=== PATIENT | female | born 1960 | race Caucasian/White ===

== ENCOUNTER 2017-11-14 01:23 | Inpatient (IN) | payer BC, OTHER ==
[2017-11-14] MEDS ORDERED: ALBUTEROL SO4 2.5/IPRATROPIUM 0.5 INH SOL 3 ML VIAL.NEB. NEB ONE ×2 (02:37→02:50)
--- NOTE | 2017-11-14 02:37 | PDOC ---
Attending Attestation - Resident Resident Name: AnthonyTamara - ED Attending Attestation I have performed the following: I have examined & evaluated the patient, The case was reviewed & discussed with the resident, I agree w/resident's findings & plan - HPI HPI: 11/14/17 05:58 Pt comes with SOB and fever and cough and total body pain. She last took antipyretics yesterday and she is burning up in the ER. - Physicial Exam PE: 11/14/17 05:58 Agree with resident exam - Medical Decision Making 11/14/17 06:02 Pt is feeling better after treatment in the ER; she wants to go home, however her pulsox at rest on room air is 93%. We will need to admit her to observation to ensure that her pulsox and breathing comes up.. 11/14/17 06:33 Patient Name: VANESSA GUTHRIE THIS IS A PRELIMINARY REPORT FROM [facility] DATE OF SERVICE: 2017-11-14 05:04:52 IMAGES: 1 EXAM: CHEST - PA HISTORY: Shortness of breath and fever COMPARISON: None. FINDINGS: The cardiomediastinal silhouette is normal. There is thickening of the right minor fissure versus mild subsegmental atelectasis. No definite effusion. The lungs are otherwise clear. IMPRESSION: No definite findings for pneumonia. 11/14/17 07:22 11/15/17 00:29 Decision was made to admit the patient for observation
[2017-11-14] MEDS ORDERED: MAGNESIUM SULF 50% (8.12 MEQ/2 ML-1 GM VIAL) IVPB ONE (02:38)
[2017-11-14] MEDS ORDERED: ACETAMINOPHEN 1000 MG/100 ML VIAL (NON FORMULARY) IVPB ONE (02:39)
[2017-11-14] MEDS ORDERED: methylPREDNISolone NA SUCC 125 MG/2 ML VIAL IVPUSH ONE (02:39)
--- NOTE | 2017-11-14 02:42 | PDOC ---
History of Present Illness <Janice Hendrix - Last Filed: 11/14/17 06:33> - History of Present Illness Initial Comments: 11/14/17 02:40 Patient is a 57 y.o. female with a PMH of asthma who presents with 5 day h/o subjective fever, non-productive cough as well as onset of dypsnea at rest today today prompting her visit to the ED. Patient endorses associated non- bloody diarrhea today. Patient denies any chest pain, abdominal pain, nausea/ vomiting, dysuria/hematuria as well recent travel, sick contacts. <Tamara Cruz - Last Filed: 11/14/17 07:05> - General Stated Complaint: ASTHMA Time Seen by Provider: 11/14/17 02:32 Past History <Janice Hendrix - Last Filed: 11/14/17 06:33> <Tamara Cruz - Last Filed: 11/14/17 07:05> - Past Medical History Allergies/Adverse Reactions: Allergies Allergy/AdvReac Type Severity Reaction Status Date / Time No Known Allergies Allergy Verified 11/14/17 02:39 Home Medications: Ambulatory Orders NK [No Known Home Medication] 11/14/17 Review of Systems - Review of Systems Constitutional: Yes: Fever. No: Chills HEENTM: No: Recent change in vision Respiratory: Yes: Shortness of Breath. No: Stridor, Wheezing, Hemoptysis Cardiac (ROS): No: Chest Pain, Lightheadedness, Palpitations, Syncope ABD/GI: Yes: Diarrhea. No: Constipated, Nausea, Vomiting : No: Burning, Dysuria <Tamara Cruz - Last Filed: 11/14/17 07:05> *Physical Exam - Vital Signs Last Vital Signs Temp Pulse Resp BP Pulse Ox 99.8 F H 130 H 24 156/90 95 11/14/17 04:26 11/14/17 01:30 11/14/17 01:30 11/14/17 01:30 11/14/17 02:45 <Janice Hendrix - Last Filed: 11/14/17 06:33> - Physical Exam General Appearance: Yes: Nourished, Appropriately Dressed Neck: positive: Trachea midline, Supple Respiratory/Chest: positive: Lungs Clear Cardiovascular: positive: S1, S2 Gastrointestinal/Abdominal: positive: Normal Bowel Sounds, Soft Musculoskeletal: positive: Normal Inspection, CVA Tenderness Extremity: positive: Normal Capillary Refill, Normal Inspection Integumentary: positive: Normal Color, Dry, Warm Neurologic: positive: Fully Oriented, Alert <Anthony,Tamara - Last Filed: 11/14/17 07:05> ED Treatment Course - LABORATORY CBC & Chemistry Diagram: 11/14/17 02:54 11/14/17 02:54 - ADDITIONAL ORDERS Additional order review: Laboratory Results 11/14/17 02:54 Sodium 134 L Potassium 4.0 Chloride 96 L Carbon Dioxide 28 Anion Gap 10 BUN 10 Creatinine 0.8 Creat Clearance w eGFR > 60 Random Glucose 158 H Calcium 9.1 Total Bilirubin 0.8 AST 22 ALT 28 Alkaline Phosphatase 107 Total Protein 8.2 Albumin 3.9 11/14/17 03:00 Influenza Types A,B Antigen (STEVE) - Final Nasopharyngeal Swab - Final 11/14/17 02:54 RBC 4.91 MCV 94.0 MCHC 33.8 RDW 13.5 MPV 7.8 Neutrophils % 78.5 Lymphocytes % 12.3 Monocytes % 8.8 Eosinophils % 0.1 Basophils % 0.3 - Medications Given in the ED: ED Medications Discontinued Medications Generic Name Dose Route Start Last Admin Trade Name Freq PRN Reason Stop Dose Admin Acetaminophen 1,000 mg 11/14/17 02:39 11/14/17 03:09 Ofirmev Injection - IVPB 11/14/17 02:40 1,000 mg ONCE ONE Administration Albuterol/Ipratropium 2 amp 11/14/17 02:37 11/14/17 03:09 Duoneb - NEB 11/14/17 02:38 2 amp ONCE ONE Administration Piperacillin/Tazobactam/Dextrose 2.25 gm in 50 mls @ 100 mls/hr 11/14/17 02: 44 11/14/17 04:26 Zosyn 2.25gm Ivpb (Premix) IVPB 11/14/17 03:13 100 mls/hr ONCE ONE Administration Protocol Ibuprofen 800 mg 11/14/17 02:44 11/14/17 03:11 Caldolor Injection - IVPB 11/14/17 02:45 800 mg ONCE ONE Administration Magnesium Sulfate 1 gm 11/14/17 02:38 11/14/17 03:09 Magnesium Sulfate IVPB 11/14/17 02:39 1 gm ONCE ONE Administration Methylprednisolone Sodium Succinate 125 mg 11/14/17 02:39 11/14/17 03:09 Solu-Medrol - IVPUSH 11/14/17 02:40 125 mg ONCE ONE Administration Sodium Chloride 1,000 ml 11/14/17 02:43 11/14/17 03:11 Normal Saline - IV 11/14/17 02:44 1,000 ml ONCE ONE Administration <Janice Hendrix - Last Filed: 11/14/17 06:33> - LABORATORY CBC & Chemistry Diagram: 11/14/17 02:54 11/14/17 02:54 - RADIOLOGY Radiology Studies Ordered: Category Date Time Status CHEST - PA [RAD] Stat Radiology 11/14/17 02:37 Ordered <Tamara Cruz - Last Filed: 11/14/17 07:05> Medical Decision Making - Medical Decision Making 11/14/17 03:58 57 y.o. female with a PMH of Asthma presents to our ED c/o dyspnea as well as viral URI symptoms. At presentation patient febrile + hypoxic. Will give Duo Nebs, Motrin/Tylenol as well as Steroids and Magnesium for presumed asthma exacerbation. Influenza swab, CXR pending. Reasess 11/14/17 06:46 Influenza negative. EKG shows no deviations, prolonged QT, no ST segment elevations/depression, poor R wave progression V1-V6. CXR shows no infiltrate/ consolidation however patient continues to breath 93% on RA. Will admit for observation and further treatment. <Tamara Cruz - Last Filed: 11/14/17 07:05> *DC/Admit/Observation/Transfer - Discharge Dispostion Admit: No <Janice Hendrix - Last Filed: 11/14/17 06:33> <Tamara Cruz - Last Filed: 11/14/17 07:05> Diagnosis at time of Disposition: Viral illness - Discharge Dispostion Disposition: HOME Condition at time of disposition: Improved - Patient Instructions Printed Discharge Instructions: DI for Viral Upper Respiratory Infection -- Adult Additional Instructions: Return to the Emergency Department for any new/worsening/concerning symptoms.
[2017-11-14] MEDS ORDERED: SODIUM CHLORIDE 0.9% 1000 ML INFUS.BAG IV ONE (02:43)
[2017-11-14] MEDS ORDERED: PIPERACILLIN/TAZOB 2.25 GM 2.25 GM/50 ML BAG IVPB ONE (02:44)
[2017-11-14] MEDS ORDERED: IBUPROFEN 800 MG/8 ML IJ IVPB ONE ×2 (02:44→02:50)
[2017-11-14] MEDS ORDERED: methylPREDNISolone NA SUCC 125 MG/2 ML VIAL ONE (02:50)
[2017-11-14] MEDS ORDERED: ACETAMINOPHEN INJECTION 100 ML IVPB ONE (02:50)
[2017-11-14] MEDS ORDERED: MAGNESIUM SULF 50% (8.12 MEQ/2 ML-1 GM VIAL) ONE (02:50)
[2017-11-14] MEDS ORDERED: PIPERACILLIN/TAZOB 3.375 GM 3.375 GM/50 ML BAG IVPB ONE (02:50)
[2017-11-14] MEDS ORDERED: PIPERACILLIN/TAZOBACTAM 2.25 GM VIAL IVPB ONE (02:51)
[2017-11-14 03:05] LABS: BASO % 0.3 % (0-2.0); EOS % 0.1 % (0-4.5); HEMATOCRIT 46.1 % (32.4-45.2); HEMOGLOBIN 15.6 GM/dL (10.7-15.3); LYMPH % 12.3 % (8-40); MCH 31.8 pg (25.7-33.7); MCHC 33.8 g/dl (32.0-36.0); MEAN PLT VOLUME 7.8 fl (7.5-11.1); MONO % 8.8 % (3.8-10.2); NEUT % 78.5 % (42.8-82.8); PLATELET COUNT 305 K/MM3 (134-434); RBC 4.91 M/mm3 (3.60-5.2); RDW 13.5 % (11.6-15.6)
[2017-11-14 03:30] LABS: ALBUMIN 3.9 g/dl (3.4-5.0); ALK PHOS 107 U/L (45-117); ANION GAP 10 (8-16); BILIRUBIN,TOTAL 0.8 mg/dL (0.2-1.0); BLOOD UREA NITROGEN 10 mg/dL (7-18); CALCIUM 9.1 mg/dL (8.5-10.1); CHLORIDE 96 mmol/L (98-107); CO2 28 mmol/L (21-32); CREATININE 0.8 mg/dL (0.55-1.02); GLUCOSE,RANDOM 158 mg/dL (74-106); SGOT/AST 22 U/L (15-37); SGPT/ALT 28 U/L (12-78); SODIUM 134 mmol/L (136-145); TOT PROT 8.2 g/dl (6.4-8.2)
[2017-11-14 05:12] VITALS: BMI 37.8
[2017-11-14] MEDS ORDERED: ACETAMINOPHEN 325 MG TABLET (FP) PO PRN (08:35)
[2017-11-14] MEDS ORDERED: ALBUTEROL SO4 0.083% IH SOL 2.5 MG/3 ML VIAL.NEB. NEB PRN (08:35)
[2017-11-14] MEDS ORDERED: SODIUM CHLORIDE 1,000 ML IV SCH (08:45)
[2017-11-14] MEDS ORDERED: CEFTRIAXONE 1 GM in DEXTROSE 5%-WATER - 50 ML IVPB ONE (08:48)
--- NOTE | 2017-11-14 08:56 | HP ---
<Manjit Restrepo - Last Filed: 11/14/17 09:27> CHIEF COMPLAINT: shortness of breath. PCP: Yesika Baldwin HISTORY OF PRESENT ILLNESS: 57 year old norwegian-speaking female with a past medical history of diabetes and asthma presents to the ED with a 5 day hx of shortness of breath. Patient states that she has been feeling ill since Wednesday and believed it was her asthma. She states she has had a cough productive of white sputum during this time. Patient states that she felt febrile earlier in the week with occasional body aches. She states that she takes albuterol at home, which did not help her. She decided to come to the hospital due to progression of her shortness of breath. Currently, patient is afrebrile and only complains of mild headache. She states that her shortness of breath has improved since she arrived at the hospital. Denies sick contacts. She states the has mild mid-sternal chest pain only when she coughs. Patient denies smoking, drinking, or illicit drug use. No allergies. Patient states that her pharmacy is at [address] [place] [address] but cannot remember the name. ER course was notable for: (1) Fever (2) Tachycardia (3) Leukocytosis (4) Pulmonary changes on CXR Recent Travel: none PAST MEDICAL HISTORY: asthma, diabetes PAST SURGICAL HISTORY: unknown Social History: Smoking: never Alcohol: never Drugs: never Family History: Allergies No Known Allergies Allergy (Verified 11/14/17 02:39) HOME MEDICATIONS: Home Medications Medication Instructions Recorded NK [No Known Home Medication] 11/14/17 REVIEW OF SYSTEMS CONSTITUTIONAL: Absent: fever, chills, diaphoresis, generalized weakness, malaise, loss of appetite, weight change HEENT: Absent: rhinorrhea, nasal congestion, throat pain, throat swelling, difficulty swallowing, mouth swelling, ear pain, eye pain, visual changes CARDIOVASCULAR: Absent: chest pain, syncope, palpitations, irregular heart rate, lightheadedness , peripheral edema RESPIRATORY: cough Absent: , shortness of breath, dyspnea with exertion, orthopnea, wheezing, stridor, hemoptysis GASTROINTESTINAL: Absent: abdominal pain, abdominal distension, nausea, vomiting, diarrhea, constipation, melena, hematochezia GENITOURINARY: Absent: dysuria, frequency, urgency, hesitancy, hematuria, flank pain, genital pain MUSCULOSKELETAL: Absent: myalgia, arthralgia, joint swelling, back pain, neck pain SKIN: Absent: rash, itching, pallor HEMATOLOGIC/IMMUNOLOGIC: Absent: easy bleeding, easy bruising, lymphadenopathy, frequent infections ENDOCRINE: Absent: unexplained weight gain, unexplained weight loss, heat intolerance, cold intolerance NEUROLOGIC: Absent: headache, focal weakness or paresthesias, dizziness, unsteady gait, seizure, mental status changes, bladder or bowel incontinence PSYCHIATRIC: Absent: anxiety, depression, suicidal or homicidal ideation, hallucinations. PHYSICAL EXAMINATION Vital Signs - 24 hr 11/14/17 11/14/17 11/14/17 01:30 02:45 04:26 Temperature 102.6 F H 99.8 F H Pulse Rate 130 H Pulse Rate [ Right Apical] Respiratory 24 Rate Blood Pressure 156/90 Blood Pressure [Right Arm] O2 Sat by Pulse 91 L 95 Oximetry (%) 11/14/17 07:46 Temperature 97.5 F L Pulse Rate Pulse Rate [ 85 Right Apical] Respiratory 16 Rate Blood Pressure Blood Pressure 126/75 [Right Arm] O2 Sat by Pulse 97 Oximetry (%) GENERAL: Awake, alert, and fully oriented, in no acute distress. HEAD: Normal with no signs of trauma. EYES: Pupils equal, round and reactive to light, extraocular movements intact, sclera anicteric, conjunctiva clear. No lid lag. LUNGS: Breath sounds equal, clear to auscultation bilaterally. No wheezes, and no crackles. No accessory muscle use. HEART: Regular rate and rhythm, normal S1 and S2 without murmur, rub or gallop. ABDOMEN: Obese, Soft, nontender, not distended, normoactive bowel sounds, no guarding, no rebound, no masses. No hepatomegaly or splenomegaly. MUSCULOSKELETAL: Normal range of motion at all joints. No bony deformities or tenderness. No CVA tenderness. UPPER EXTREMITIES: 2+ pulses, warm, well-perfused. No cyanosis. No clubbing. No peripheral edema. LOWER EXTREMITIES: 2+ pulses, warm, well-perfused. No calf tenderness. No peripheral edema. NEUROLOGICAL: Cranial nerves II-XII intact. Normal speech. Normal gait. PSYCHIATRIC: Cooperative. Good eye contact. Appropriate mood and affect. SKIN: Warm, dry, normal turgor, no rashes or lesions noted, normal capillary refill. Laboratory Results - last 24 hr 11/14/17 11/14/17 02:54 02:54 WBC 11.0 H RBC 4.91 Hgb 15.6 H Hct 46.1 H MCV 94.0 MCH 31.8 MCHC 33.8 RDW 13.5 Plt Count 305 MPV 7.8 Neutrophils % 78.5 Lymphocytes % 12.3 Monocytes % 8.8 Eosinophils % 0.1 Basophils % 0.3 Sodium 134 L Potassium 4.0 Chloride 96 L Carbon Dioxide 28 Anion Gap 10 BUN 10 Creatinine 0.8 Creat Clearance w eGFR > 60 Random Glucose 158 H Calcium 9.1 Total Bilirubin 0.8 AST 22 ALT 28 Alkaline Phosphatase 107 Total Protein 8.2 Albumin 3.9 ASSESSMENT/PLAN: 57 year old female with a history of asthma and diabetes is admitted to the hospital for respiratory distress likely secondary to pneumonia vs influenza vs asthma exacerbation. #Sepsis 2/2 pneumonia vs influenza: improved -rapid influenza negative, still would start 75mg Tamiflu BID -reported QT prolongation - give ceftriaxone 2gm and holding azithromycin due to QT prolongation (QTc - 598) -repeat CXR in AM -Fluid hydration with NS @ 100cc/hr -O2 2L NC -albuterol nebulizer PRN #Hyponatremia: likely 2/2 to sepsis -LR @ 100cc/hr #Diabetes: medications unknown at this time- pharmacy unknown -BGMs -ISS #FEN LR @ 100 CC/hr Replete lytes in AM Diabetic diet #Prophylaxis Lovenox 30 subQ QD #Disposition -Admit to med-surg Visit type - Emergency Visit Emergency Visit: Yes Care time: The patient presented to the Emergency Department on the above date and was hospitalized for further evaluation of their emergent condition. - New Patient This patient is new to me today: Yes Date on this admission: 11/14/17 - Critical Care Critical Care patient: No <Cherri Lane - Last Filed: 11/14/17 13:53> Patient is been seen and examined with the resident. Agree with the plan. # Flue symptoms will start the patient Tamiflu 75mg po bid, even though her flue swab is negative since sensitivity is 50%. # Acute Pneumonia with asthma exacerbation will start her on Rocephin will hold off on Zithromax since her QTc is 580's. avoid qt prolongation agents. # QT pronlongation will continue to monitor her # Asthma exacerbation will continue with Albutrol prn # Acute mild hyponatremia will continue with IVF # Hx of DM on sliding scale with coverage. DVT Px: Lovenox
[2017-11-14] MEDS ORDERED: ACETAMINOPHEN 325 MG TABLET (FP) ONE (09:23)
[2017-11-14] MEDS ORDERED: CEFTRIAXONE 1 GM/50 ML BAG ONE (09:24)
[2017-11-14] MEDS: OSELTAMIVIR PHOSPHATE 75 MG CAPSULE PO SCH ×2 (09:33→21:21)
[2017-11-14] MEDS: LACTATED RINGERS SOLUTION 1,000 ML/1,000 ML INFUS.BAG IV SCH ×2 (09:33→15:41)
[2017-11-14] MEDS: ENOXAPARIN NA (PORCINE) 30 MG/0.3 ML DISP.SYRIN SQ SCH (09:33)
[2017-11-14 10:18] LABS: URINE APPEARANCE CLEAR; URINE BILIRUBIN NEGATIVE (NEGATIVE); URINE BLOOD 2+ (NEGATIVE); URINE COLOR STRAW; URINE GLUCOSE (UA) 3+ (NEGATIVE); URINE KETONE 1+ (NEGATIVE); URINE LEUK ESTERASE NEGATIVE (NEGATIVE); URINE NITRITE NEGATIVE (NEGATIVE); URINE PROTEIN NEGATIVE (NEGATIVE); URINE UROBILINOGEN NEGATIVE mg/dL (0.2-1.0)
[2017-11-14 10:23] LABS: EPI CELLS RARE /HPF (FEW); URINE MUCUS RARE
[2017-11-14] MEDS: INSULIN (NOVOLOG) ASPART 100 UNITS/ML 10ML VIAL SQ SCH ×3 (11:44→21:21)
[2017-11-14] MEDS ORDERED: INSULIN REGULAR HUMAN 100 UNITS/ML *VIAL ONE (11:50)
--- NOTE | 2017-11-14 12:51 | EKG ---
Test Reason : Blood Pressure : / mmHG Vent. Rate : 096 BPM Atrial Rate : 096 BPM P-R Int : 178 ms QRS Dur : 080 ms QT Int : 378 ms P-R-T Axes : 055 -10 029 degrees QTc Int : 477 ms NORMAL SINUS RHYTHM NORMAL ECG WHEN COMPARED WITH ECG OF 14-NOV-2017 03:42, NOTE CHANGE IN R-WAVE PROGRESSION Confirmed by GIOVANNY TAPIA, KATHY ([id number]) on 11/14/2017 12:50:44 PM Referred By: Confirmed By:KATHY BALTAZAR MD
--- NOTE | 2017-11-14 12:52 | EKG ---
Test Reason : Blood Pressure : / mmHG Vent. Rate : 123 BPM Atrial Rate : 123 BPM P-R Int : 148 ms QRS Dur : 076 ms QT Int : 418 ms P-R-T Axes : 051 -11 034 degrees QTc Int : 598 ms SINUS TACHYCARDIA POOR R WAVE PROGRESSION ABNORMAL ECG WHEN COMPARED WITH ECG OF 22-JUL-2011 13:27, NONSPECIFIC T WAVE ABNORMALITY NOW EVIDENT IN ANTERIOR LEADS NOTE PROBABLE ERROR IN LEAD V4, RECOMMEND REPEAT TRACING Confirmed by KATHY BALTAZAR MD ([id number]) on 11/14/2017 12:52:06 PM Referred By: Confirmed By:KATHY BALTAZAR MD
[2017-11-14] MEDS: BUDESONIDE/FORMETEROL FUMARATE 160/4.5 mcg INHALER IH SCH ×2 (16:53→21:22)
[2017-11-14] MEDS ORDERED: PT OWN MED DRAWER 7, Y5N ONE (16:57)
[2017-11-14] MEDS ORDERED: AZITHROMYCIN IVPB 500 MG in DEXTROSE 5%-WATER - 250 ML IVPB ONE (18:39)
[2017-11-14] MEDS: MONTELUKAST NA 10 MG TABLET PO SCH (21:20)
[2017-11-15] MEDS: LACTATED RINGERS SOLUTION 1,000 ML/1,000 ML INFUS.BAG IV SCH (02:47)
[2017-11-15] MEDS: INSULIN (NOVOLOG) ASPART 100 UNITS/ML 10ML VIAL SQ SCH ×4 (06:35→21:55)
[2017-11-15 08:18] LABS: HEMATOCRIT 43.5 % (32.4-45.2); HEMOGLOBIN 14.3 GM/dL (10.7-15.3); MCHC 32.7 g/dl (32.0-36.0); MEAN CELL VOLUME 94.8 fl (80-96); MEAN PLT VOLUME 7.6 fl (7.5-11.1); PLATELET COUNT 284 K/MM3 (134-434); RBC 4.59 M/mm3 (3.60-5.2); RDW 13.8 % (11.6-15.6); WHITE BLOOD COUNT 9.3 K/mm3 (4.0-10.0)
[2017-11-15 08:41] LABS: ANION GAP 9 (8-16); BLOOD UREA NITROGEN 13 mg/dL (7-18); CALCIUM 8.7 mg/dL (8.5-10.1); CHLORIDE 103 mmol/L (98-107); CO2 28 mmol/L (21-32); CREATININE 0.6 mg/dL (0.55-1.02); GLUCOSE,RANDOM 130 mg/dL (74-106); MAGNESIUM 2.2 mg/dL (1.8-2.4); PHOSPHOROUS 3.8 mg/dL (2.5-4.9); POTASSIUM 3.9 mmol/L (3.5-5.1); SODIUM 140 mmol/L (136-145)
[2017-11-15] MEDS ORDERED: PT OWN MED DRAWER 7, Y5N ONE ×2 (09:13→21:39)
[2017-11-15] MEDS: BUDESONIDE/FORMETEROL FUMARATE 160/4.5 mcg INHALER IH SCH ×2 (09:16→21:49)
[2017-11-15] MEDS: OSELTAMIVIR PHOSPHATE 75 MG CAPSULE PO SCH ×2 (09:16→21:49)
[2017-11-15] MEDS: ENOXAPARIN NA (PORCINE) 30 MG/0.3 ML DISP.SYRIN SQ SCH (09:17)
[2017-11-15] MEDS ORDERED: INSULIN (NOVOLOG) ASPART 100 UNITS/ML 10ML VIAL ONE (11:29)
--- NOTE | 2017-11-15 12:36 | PN ---
<Manjit Restrepo - Last Filed: 11/15/17 12:39> Physical Exam: SUBJECTIVE: Patient seen and examined at bedside. She states that her breathing has improved since yesterday. Denies chest pain, SOB, nausea, vomiting, diarrhea. OBJECTIVE: Vital Signs Period Temp Pulse Resp BP Sys/Ram Pulse Ox Last 24 Hr 97.7 F-98.9 F 79-98 16-20 113-131/56-79 96-97 GENERAL: Awake, alert, and fully oriented, in no acute distress. HEAD: Normal with no signs of trauma. EYES: Pupils equal, round and reactive to light, extraocular movements intact, sclera anicteric, conjunctiva clear. No lid lag. LUNGS: Breath sounds equal, clear to auscultation bilaterally. No wheezes, and no crackles. No accessory muscle use. HEART: Regular rate and rhythm, normal S1 and S2 without murmur, rub or gallop. ABDOMEN: Obese, Soft, nontender, not distended, normoactive bowel sounds, no guarding, no rebound, no masses. No hepatomegaly or splenomegaly. MUSCULOSKELETAL: Normal range of motion at all joints. No bony deformities or tenderness. No CVA tenderness. SKIN: Warm, dry, normal turgor, no rashes or lesions noted, normal capillary refill. Laboratory Results - last 24 hr 11/14/17 11/14/17 11/15/17 16:40 21:18 06:34 WBC RBC Hgb Hct MCV MCH MCHC RDW Plt Count MPV Sodium Potassium Chloride Carbon Dioxide Anion Gap BUN Creatinine POC Glucometer 234 246 140 Random Glucose Calcium Phosphorus Magnesium 11/15/17 11/15/17 11/15/17 07:15 07:15 11:36 WBC 9.3 RBC 4.59 Hgb 14.3 Hct 43.5 MCV 94.8 MCH 31.0 MCHC 32.7 RDW 13.8 Plt Count 284 MPV 7.6 Sodium 140 Potassium 3.9 Chloride 103 Carbon Dioxide 28 Anion Gap 9 BUN 13 Creatinine 0.6 POC Glucometer 124 Random Glucose 130 H Calcium 8.7 Phosphorus 3.8 Magnesium 2.2 Active Medications Generic Name Dose Route Start Last Admin Trade Name Freq PRN Reason Stop Dose Admin Acetaminophen 650 mg 11/14/17 08:35 11/14/17 09:34 Tylenol - PO 650 mg Q4H PRN Administration PAIN Albuterol Sulfate 1 amp 11/14/17 08:35 Ventolin 0.083% Nebulizer Soln - NEB Q4H PRN SHORT OF BREATH/WHEEZING Budesonide/Formoterol Fumarate 2 puff 11/14/17 14:00 11/15/17 09:16 Symbicort 160/4.5mcg - IH 2 puff BID ROSA Administration Enoxaparin Sodium 30 mg 11/14/17 10:00 11/15/17 09:17 Lovenox - SQ 30 mg DAILY ROSA Administration Lactated Ringer's 1,000 ml in 1,000 mls @ 100 mls/hr 11/14/17 09:15 11/15/17 02:47 Lactated Ringers Solution IV 100 mls/hr ASDIR ROSA Administration Insulin Aspart 0 units 11/14/17 11:00 11/15/17 11:37 Novolog Vial SQ Not Given ACHS ROSA Protocol Montelukast Sodium 10 mg 11/14/17 22:00 11/14/17 21:20 Singulair - PO 10 mg HS ROSA Administration Oseltamivir Phosphate 75 mg 11/14/17 10:00 11/15/17 09:16 Tamiflu - PO 11/19/17 09:59 75 mg BID ROSA Administration ASSESSMENT/PLAN: 57 year old female with a history of asthma and diabetes is admitted to the hospital for respiratory distress likely secondary to pneumonia vs influenza vs asthma exacerbation. #Sepsis 2/2 pneumonia vs influenza: improved -rapid influenza negative, still would start 75mg Tamiflu BID -repeat CXR in AM shows clearing of possible infiltrates -O2 2L NC -albuterol nebulizer PRN -continue singulair -reassess condition in AM #Hyponatremia: likely 2/2 to sepsis, resolved -no need for fluids #Diabetes: medications unknown at this time- pharmacy unknown -BGMs -ISS #FEN No standing fluids Replete lytes in AM Diabetic diet #Prophylaxis Lovenox 30 subQ QD #Disposition -Admit to med-surg Visit type - Emergency Visit Emergency Visit: No - New Patient This patient is new to me today: No - Critical Care Critical Care patient: No <Cherri Lane - Last Filed: 11/15/17 19:18> Physical Exam: Patient seen and examined with the resident , agree with the plan. Vital Signs Temperature 98.9 F 11/15/17 15:02 Pulse Rate 90 11/15/17 15:02 Respiratory Rate 18 11/15/17 15:02 Blood Pressure 129/90 11/15/17 15:02 O2 Sat by Pulse Oximetry (%) 99 11/15/17 09:00 CBCD WBC 9.3 K/mm3 (4.0-10.0) 11/15/17 07:15 RBC 4.59 M/mm3 (3.60-5.2) 11/15/17 07:15 Hgb 14.3 GM/dL (10.7-15.3) 11/15/17 07:15 Hct 43.5 % (32.4-45.2) 11/15/17 07:15 MCV 94.8 fl (80-96) 11/15/17 07:15 MCHC 32.7 g/dl (32.0-36.0) 11/15/17 07:15 RDW 13.8 % (11.6-15.6) 11/15/17 07:15 Plt Count 284 K/MM3 (134-434) 11/15/17 07:15 MPV 7.6 fl (7.5-11.1) 11/15/17 07:15 CMP Sodium 140 mmol/L (136-145) 11/15/17 07:15 Potassium 3.9 mmol/L (3.5-5.1) 11/15/17 07:15 Chloride 103 mmol/L (98-107) 11/15/17 07:15 Carbon Dioxide 28 mmol/L (21-32) 11/15/17 07:15 Anion Gap 9 (8-16) 11/15/17 07:15 BUN 13 mg/dL (7-18) 11/15/17 07:15 Creatinine 0.6 mg/dL (0.55-1.02) 11/15/17 07:15 Creat Clearance w eGFR > 60 (>60) 11/14/17 02:54 Random Glucose 130 mg/dL (74-106) H 11/15/17 07:15 Calcium 8.7 mg/dL (8.5-10.1) 11/15/17 07:15 Total Bilirubin 0.8 mg/dL (0.2-1.0) 11/14/17 02:54 AST 22 U/L (15-37) 11/14/17 02:54 ALT 28 U/L (12-78) 11/14/17 02:54 Alkaline Phosphatase 107 U/L (45-117) 11/14/17 02:54 Total Protein 8.2 g/dl (6.4-8.2) 11/14/17 02:54 Albumin 3.9 g/dl (3.4-5.0) 11/14/17 02:54 Current Medications Generic Name Dose Route Start Last Admin Trade Name Freq PRN Reason Stop Dose Admin Acetaminophen 650 mg 11/14/17 08:35 11/14/17 09:34 Tylenol - PO 650 mg Q4H PRN Administration PAIN Albuterol Sulfate 1 amp 11/14/17 08:35 Ventolin 0.083% Nebulizer Soln - NEB Q4H PRN SHORT OF BREATH/WHEEZING Budesonide/Formoterol Fumarate 2 puff 11/14/17 14:00 11/15/17 09:16 Symbicort 160/4.5mcg - IH 2 puff BID ROSA Administration Enoxaparin Sodium 30 mg 11/14/17 10:00 11/15/17 09:17 Lovenox - SQ 30 mg DAILY ROSA Administration Insulin Aspart 0 units 11/14/17 11:00 11/15/17 17:07 Novolog Vial SQ Not Given ACHS ROSA Protocol Montelukast Sodium 10 mg 11/14/17 22:00 11/14/17 21:20 Singulair - PO 10 mg HS ROSA Administration Oseltamivir Phosphate 75 mg 11/14/17 10:00 11/15/17 09:16 Tamiflu - PO 11/19/17 09:59 75 mg BID ROSA Administration Home Medications Medication Instructions Recorded NK [No Known Home Medication] 11/14/17
[2017-11-15] MEDS: MONTELUKAST NA 10 MG TABLET PO SCH (21:49)
[2017-11-16] MEDS: INSULIN (NOVOLOG) ASPART 100 UNITS/ML 10ML VIAL SQ SCH ×2 (06:04→11:15)
[2017-11-16 08:06] LABS: HEMATOCRIT 44.3 % (32.4-45.2); HEMOGLOBIN 14.5 GM/dL (10.7-15.3); MCH 31.1 pg (25.7-33.7); MCHC 32.7 g/dl (32.0-36.0); MEAN PLT VOLUME 7.9 fl (7.5-11.1); PLATELET COUNT 287 K/MM3 (134-434); RBC 4.67 M/mm3 (3.60-5.2); WHITE BLOOD COUNT 5.4 K/mm3 (4.0-10.0)
[2017-11-16 08:13] LABS: BLOOD UREA NITROGEN 15 mg/dL (7-18); CALCIUM 8.6 mg/dL (8.5-10.1); CHLORIDE 101 mmol/L (98-107); MAGNESIUM 2.1 mg/dL (1.8-2.4); POTASSIUM 4.5 mmol/L (3.5-5.1); SODIUM 139 mmol/L (136-145)
[2017-11-16 08:20] LABS: ANION GAP 9 (8-16); CO2 29 mmol/L (21-32); CREATININE 0.6 mg/dL (0.55-1.02); GLUCOSE,RANDOM 115 mg/dL (74-106)
--- NOTE | 2017-11-16 08:53 | PN ---
Physical Exam: SUBJECTIVE: Patient seen and examined at bedside. States that she has improved and can breathe well. No acute complaints, no overnight events. OBJECTIVE: Vital Signs Period Temp Pulse Resp BP Sys/Ram Pulse Ox Last 24 Hr 98.4 F-98.9 F 76-90 18-18 129-158/68-90 99-99 GENERAL: Awake, alert, and fully oriented, in no acute distress. HEAD: Normal with no signs of trauma. EYES: Pupils equal, round and reactive to light, extraocular movements intact, sclera anicteric, conjunctiva clear. No lid lag. LUNGS: Breath sounds equal, clear to auscultation bilaterally. No wheezes, and no crackles. No accessory muscle use. HEART: Regular rate and rhythm, normal S1 and S2 without murmur, rub or gallop. ABDOMEN: Obese, Soft, nontender, not distended, normoactive bowel sounds, no guarding, no rebound, no masses. No hepatomegaly or splenomegaly. MUSCULOSKELETAL: Normal range of motion at all joints. No bony deformities or tenderness. No CVA tenderness. SKIN: Warm, dry, normal turgor, no rashes or lesions noted, normal capillary refill. Laboratory Results - last 24 hr 11/15/17 11/15/17 11/15/17 11:36 17:06 21:07 WBC RBC Hgb Hct MCV MCH MCHC RDW Plt Count MPV Sodium Potassium Chloride Carbon Dioxide Anion Gap BUN Creatinine POC Glucometer 124 146 128 Random Glucose Calcium Magnesium 11/16/17 11/16/17 11/16/17 06:04 06:30 06:30 WBC 5.4 D RBC 4.67 Hgb 14.5 Hct 44.3 MCV 95.0 MCH 31.1 MCHC 32.7 RDW 14.0 Plt Count 287 MPV 7.9 Sodium 139 Potassium 4.5 Chloride 101 Carbon Dioxide 29 Anion Gap 9 BUN 15 Creatinine 0.6 POC Glucometer 109 Random Glucose 115 H Calcium 8.6 Magnesium 2.1 Active Medications Generic Name Dose Route Start Last Admin Trade Name Freq PRN Reason Stop Dose Admin Acetaminophen 650 mg 11/14/17 08:35 11/14/17 09:34 Tylenol - PO 650 mg Q4H PRN Administration PAIN Albuterol Sulfate 1 amp 11/14/17 08:35 Ventolin 0.083% Nebulizer Soln - NEB Q4H PRN SHORT OF BREATH/WHEEZING Budesonide/Formoterol Fumarate 2 puff 11/14/17 14:00 11/15/17 21:49 Symbicort 160/4.5mcg - IH 2 puff BID ROSA Administration Enoxaparin Sodium 30 mg 11/14/17 10:00 11/15/17 09:17 Lovenox - SQ 30 mg DAILY ROSA Administration Insulin Aspart 0 units 11/14/17 11:00 11/16/17 06:04 Novolog Vial SQ Not Given ACHS ROSA Protocol Montelukast Sodium 10 mg 11/14/17 22:00 11/15/17 21:49 Singulair - PO 10 mg HS ROSA Administration Oseltamivir Phosphate 75 mg 11/14/17 10:00 11/15/17 21:49 Tamiflu - PO 11/19/17 09:59 75 mg BID ROSA Administration ASSESSMENT/PLAN: 57 year old female with a history of asthma and diabetes is admitted to the hospital for respiratory distress likely secondary to pneumonia vs influenza vs asthma exacerbation. #Sepsis 2/2 pneumonia vs influenza: improved -rapid influenza negative, still would start 75mg Tamiflu BID day 3 -O2 2L NC -albuterol nebulizer PRN -continue singulair -likely DC today #Hyponatremia: likely 2/2 to sepsis, resolved -no need for fluids #Diabetes: medications unknown at this time- pharmacy unknown -BGMs -ISS #FEN No standing fluids Replete lytes in AM Diabetic diet #Prophylaxis Lovenox 30 subQ QD #Disposition -likely dc today Visit type - Emergency Visit Emergency Visit: No - New Patient This patient is new to me today: No - Critical Care Critical Care patient: No
[2017-11-16] MEDS ORDERED: PT OWN MED DRAWER 7, Y5N ONE (09:12)
[2017-11-16] MEDS: BUDESONIDE/FORMETEROL FUMARATE 160/4.5 mcg INHALER IH SCH (09:13)
[2017-11-16] MEDS: ENOXAPARIN NA (PORCINE) 30 MG/0.3 ML DISP.SYRIN SQ SCH (09:14)
[2017-11-16] MEDS: OSELTAMIVIR PHOSPHATE 75 MG CAPSULE PO SCH (09:14)
--- NOTE | 2017-11-16 10:51 | DS ---
Physical Exam: SUBJECTIVE: Patient seen and examined at bedside. No acute complaints. Breathing has improved. Breathing off of nasal cannula. OBJECTIVE: Vital Signs Period Temp Pulse Resp BP Sys/Ram Pulse Ox Last 24 Hr 98.4 F-98.9 F 76-92 18-18 129-158/68-90 94-99 PHYSICAL EXAM GENERAL: Awake, alert, and fully oriented, in no acute distress. HEAD: Normal with no signs of trauma. EYES: Pupils equal, round and reactive to light, extraocular movements intact, sclera anicteric, conjunctiva clear. No lid lag. LUNGS: Breath sounds equal, clear to auscultation bilaterally. No wheezes, and no crackles. No accessory muscle use. HEART: Regular rate and rhythm, normal S1 and S2 without murmur, rub or gallop. ABDOMEN: Obese, Soft, nontender, not distended, normoactive bowel sounds, no guarding, no rebound, no masses. No hepatomegaly or splenomegaly. MUSCULOSKELETAL: Normal range of motion at all joints. No bony deformities or tenderness. No CVA tenderness. SKIN: Warm, dry, normal turgor, no rashes or lesions noted, normal capillary refill. LABS Laboratory Results - last 24 hr 11/15/17 11/15/17 11/15/17 11:36 17:06 21:07 WBC RBC Hgb Hct MCV MCH MCHC RDW Plt Count MPV Sodium Potassium Chloride Carbon Dioxide Anion Gap BUN Creatinine POC Glucometer 124 146 128 Random Glucose Calcium Magnesium 11/16/17 11/16/17 11/16/17 06:04 06:30 06:30 WBC 5.4 D RBC 4.67 Hgb 14.5 Hct 44.3 MCV 95.0 MCH 31.1 MCHC 32.7 RDW 14.0 Plt Count 287 MPV 7.9 Sodium 139 Potassium 4.5 Chloride 101 Carbon Dioxide 29 Anion Gap 9 BUN 15 Creatinine 0.6 POC Glucometer 109 Random Glucose 115 H Calcium 8.6 Magnesium 2.1 HOSPITAL COURSE: Date of Admission:11/14/17 57 year old romansh-speaking female with a past medical history of diabetes and asthma presents to the ED with a 5 day hx of shortness of breath. Patient states that she has been feeling ill since Wednesday and believed it was her asthma. She states she has had a cough productive of white sputum during this time. Patient states that she felt febrile earlier in the week with occasional body aches. She states that she takes albuterol at home, which did not help her. She decided to come to the hospital due to progression of her shortness of breath. In the ED, patient was found to be febrile, tachycardic, and had a leukocytosis with pulmonary changes on CXR. Flu swab was negative, but patient was started on Tamiflu 75mg BID, to end Sunday 11/19. She was treated with zosyn initially and transitioned to ceftriaxone/azithromycin for pneumonia coverage. She was also given albuterol, singulair and symbicort. Patient's antibiotics were stopped as pneumonia became less likely. She clinically improved and was discharged home with an incentive spirometer, singulair, symbicort, and prescription to finish her tamiflu for 2 days BID. She was instructed to see the blood donor recruiter supervisor Dr. Scott for asthma as well as her primary care physician in 1 week. Date of Discharge: 11/16/17 Minutes to complete discharge: 35 <Manjit Restrepo - Last Filed: 11/16/17 10:55> Physical Exam: Patient seen and examined with the resident. Vital Signs Temperature 98.5 F 11/16/17 13:41 Pulse Rate 89 11/16/17 13:41 Respiratory Rate 18 11/16/17 09:00 Blood Pressure 138/78 11/16/17 13:41 O2 Sat by Pulse Oximetry (%) 94 L 11/16/17 10:18 CBCD WBC 5.4 K/mm3 (4.0-10.0) D 11/16/17 06:30 RBC 4.67 M/mm3 (3.60-5.2) 11/16/17 06:30 Hgb 14.5 GM/dL (10.7-15.3) 11/16/17 06:30 Hct 44.3 % (32.4-45.2) 11/16/17 06:30 MCV 95.0 fl (80-96) 11/16/17 06:30 MCHC 32.7 g/dl (32.0-36.0) 11/16/17 06:30 RDW 14.0 % (11.6-15.6) 11/16/17 06:30 Plt Count 287 K/MM3 (134-434) 11/16/17 06:30 MPV 7.9 fl (7.5-11.1) 11/16/17 06:30 CMP Sodium 139 mmol/L (136-145) 11/16/17 06:30 Potassium 4.5 mmol/L (3.5-5.1) 11/16/17 06:30 Chloride 101 mmol/L (98-107) 11/16/17 06:30 Carbon Dioxide 29 mmol/L (21-32) 11/16/17 06:30 Anion Gap 9 (8-16) 11/16/17 06:30 BUN 15 mg/dL (7-18) 11/16/17 06:30 Creatinine 0.6 mg/dL (0.55-1.02) 11/16/17 06:30 Creat Clearance w eGFR > 60 (>60) 11/14/17 02:54 Random Glucose 115 mg/dL (74-106) H 11/16/17 06:30 Calcium 8.6 mg/dL (8.5-10.1) 11/16/17 06:30 Total Bilirubin 0.8 mg/dL (0.2-1.0) 11/14/17 02:54 AST 22 U/L (15-37) 11/14/17 02:54 ALT 28 U/L (12-78) 11/14/17 02:54 Alkaline Phosphatase 107 U/L (45-117) 11/14/17 02:54 Total Protein 8.2 g/dl (6.4-8.2) 11/14/17 02:54 Albumin 3.9 g/dl (3.4-5.0) 11/14/17 02:54 Home Medications Medication Instructions Recorded Budesonide/Formeterol Fumarate 2 puff IH BID #1 inhaler 11/16/17 [SYMBICORT 160/4.5mcg -] Montelukast Na [Singulair -] 10 mg PO HS #30 tablet 11/16/17 Oseltamivir Phosphate [Tamiflu -] 75 mg PO BID #4 capsule 11/16/17 PE: chest: CTA BL with no acute distress Heart: S1S2 positive rest of PE per resident's note # Acute asthma exacerbation added symbicort and Singuilair to her regimen # Influenza/Pneumonia continue Tamiflu 2 more days follow with Pulmonary within a week and follow up with your primary in a week period. <Cherri Lane - Last Filed: 11/16/17 15:59> Discharge Summary Reason For Visit: VIRAL INFECTION Current Active Problems Viral illness (Acute) - Home Medications Comprehensive Discharge Medication List: Ambulatory Orders Budesonide/Formeterol Fumarate [SYMBICORT 160/4.5mcg -] 2 puff IH BID #1 inhaler 11/16/17 Montelukast Na [Singulair -] 10 mg PO HS #30 tablet 11/16/17 Oseltamivir Phosphate [Tamiflu -] 75 mg PO BID #4 capsule 11/16/17 <Manjit Restrepo - Last Filed: 11/16/17 10:55> - Home Medications Comprehensive Discharge Medication List: Ambulatory Orders Budesonide/Formeterol Fumarate [SYMBICORT 160/4.5mcg -] 2 puff IH BID #1 inhaler 11/16/17 Montelukast Na [Singulair -] 10 mg PO HS #30 tablet 11/16/17 Oseltamivir Phosphate [Tamiflu -] 75 mg PO BID #4 capsule 11/16/17 <[address] - Last Filed: 11/16/17 15:59> Condition: Improved - Instructions Diet, Activity, Other Instructions: You were treated in the hospital for respiratory infection likely due to the flu virus. You received 3 days of Tamiflu in the hospital Medical Recommendations: -Please continue to take 2 more days of Tamiflu 75mg twice a day -We prescribed you symbicort 160mcgs/4.5 --- 2 puffs twice a day -We prescribed you Singulair 10mg once every night before bedtime -We gave you a peak flow meter, use peak flow once a day - record the number you see and take your results to your blood donor recruiter supervisor -Make an appointment with your primary care physician within a week of discharge -Make an appointment with the blood donor recruiter supervisor Dr. Scott within 2 weeks of discharge Return to the Emergency Department for any new/worsening/concerning symptoms. Referrals: Mata Scott MD [Staff Physician] - 2 Weeks Disposition: HOME This patient is new to me today: No Emergency Visit: No Critical Care patient: No - Discharge Referral Referred to [facility] No <Manjit Restrepo - Last Filed: 11/16/17 10:55>
[2017-11-16 13:43] VITALS: BP 138/78; PULSE 89; TEMP 98.5
== END 2017-11-16 13:45 | disposition home or self-care (01) | DRG 871 ==
LOC: JER 01:23 → JERBED 08:32 → OBSVTOIN 08:35 → J6S 14:37
PROVIDERS: ADMIT Internal Medicine; ATTEND Internal Medicine
DX: A41.9 Sepsis, unspecified organism (principal); J18.9 Pneumonia, unspecified organism; E87.1 Hypo-osmolality and hyponatremia; J45.901 Unspecified asthma with (acute) exacerbation; E11.9 Type 2 diabetes mellitus without complications; E66.9 Obesity, unspecified; Z68.37 Body mass index [BMI] 37.0-37.9, adult; B34.9 Viral infection, unspecified
CPT/HCPCS: 36415; 71045-TC; 71045-TC-FY; 80048; 80053; 81003; 81015; 82962; 83735; 84100; 85025; 85027; 87040; 87086; 87804; 93005; 93010; 94150; 94761; 99285-25; G0378